=== PATIENT | female | born 1990 | race Two or more races ===

== ENCOUNTER 2021-07-03 20:27 | Emergency (ER) | payer MEDICAID, OTHER ==
[~2021-07-03] VITALS: Ht 157.5 cm; Wt 52.2 kg
[2021-07-03 20:27] VITALS: BP 130/83
[2021-07-03 21:41] LABS: Hematocrit 44.5 % (36.0-46.0); Hemoglobin 15.4 g/dL (12.2-16.2); Mean Corpuscular Hemoglobin 31.4 pg (28.0-32.0); Mean Corpuscular Hgb Conc. 34.6 g/dL (32.0-36.0); Mean Corpuscular Volume 90.9 fL (80.0-100.0); Red Blood Cells 4.89 10^6/uL (4.0-5.20); Red Cell Distribution Width 13.2 % (11.8-14.3); White Blood Cell 7.8 10^3/uL (4.4-10.8)
[2021-07-03 21:50] LABS: Basophils % (manual) 0 (0.0-2.0); Blast Cells 0; Metamyelocytes % 0; Myelocytes % 0; Promyelocytes % 0; Reactive Lymphocytes 0
[2021-07-03 21:59] LABS: Albumin 4.2 g/dL (3.4-5.0); Calcium 9.5 mg/dL (8.5-10.1); Magnesium 2.2 mg/dL (1.6-2.6); Potassium 3.7 mmol/L (3.5-5.1)
[2021-07-03 22:02] LABS: Bilirubin, Total 0.3 mg/dL (0.2-1.0)
[2021-07-03 22:20] LABS: Urine Bacteria FEW /hpf (None Seen); Urine Blood Negative /uL (Negative); Urine Mucus FEW (None Seen); Urine Specific Gravity 1.008 (1.001-1.035); Urine WBC 3 /hpf (0 - 5)
[2021-07-03 22:42] LABS: Band Neutrophils % (manual) 3; Eosinophils % (manual) 20 (0-7); Lymphocytes % (manual) 31 (10.0-50.0); Monocytes % (manual) 6 (0-12)
== END 2021-07-04 01:42 | disposition left against medical advice (07) ==
LOC: EDBD 20:31 → ER 20:31
DX: R10.9 Unspecified abdominal pain (principal)
CPT/HCPCS: 36415; 80053; 81001; 83735; 84702; 85007; 85027